=== PATIENT | male | born 1935 | race Caucasian/White ===

== ENCOUNTER 2019-01-24 10:50 | Emergency (ER) | payer BC, MEDICARE ==
[2019-01-24] MEDS ORDERED: Ketorolac INJ* 30 MG/ML 1 ML VIAL IM ONE (11:05)
[2019-01-24] MEDS ORDERED: Cyclobenzaprine TAB* 10 MG PO ONE (11:06)
[2019-01-24] MEDS ORDERED: Lidocaine PATCH 5%* 1 PATCH TRANSDERM ONE (11:08)
--- NOTE | 2019-01-24 11:18 | ED ---
Back Pain - HPI Summary HPI Summary: 83-year-old male presents with back pain for the past week. States been intermittent. He states that today it became constant. pain is located on the side of his lower back. He states is sharp in nature. Took some Tylenol with relief. States worse with movement. Denies any abdominal pain. Pain doesn't radiate anywhere. No urinary symno chest pain or shortness breath. Denies any history of back pain. Has no medical conditions. - History of Current Complaint Chief Complaint: EDBackInjuryPain Stated Complaint: BACK PAIN PER PT Time Seen by Provider: 01/24/19 10:59 Pain Intensity: 2 - Allergies/Home Medications Allergies/Adverse Reactions: Allergies Allergy/AdvReac Type Severity Reaction Status Date / Time cephalexin Allergy Unknown Verified 01/24/19 10:59 Reaction Details Home Medications: Home Medications Acetaminophen [Tylenol Extra Strength] 1 - 2 tab PO Q8H PRN 01/24/19 [History Confirmed 01/24/19] PMH/Surg Hx/FS Hx/Imm Hx Endocrine/Hematology History: Denies: Hx Anticoagulant Therapy Cardiovascular History: Reports: Hx Hypertension Respiratory History: Denies: Hx Asthma Infectious Disease History: No Infectious Disease History: Denies: Traveled Outside the [place] in Last 30 Days - Family History Known Family History: Positive: Non-Contributory - Social History Alcohol Use: Rare Substance Use Type: Reports: None Smoking Status (MU): Never Smoked Tobacco Review of Systems Negative: Fever Negative: Chest Pain Negative: Shortness Of Breath Positive: Myalgia - back pain All Other Systems Reviewed And Are Negative: Yes Physical Exam Triage Information Reviewed: Yes Vital Signs On Initial Exam: Initial Vitals Temp Pulse Resp BP Pulse Ox 97.9 F 65 16 137/86 95 01/24/19 10:53 01/24/19 10:53 01/24/19 10:53 01/24/19 10:53 01/24/19 10:53 Vital Signs Reviewed: Yes Appearance: Positive: Well-Appearing Skin: Positive: Warm, Dry Head/Face: Positive: Normal Head/Face Inspection Eyes: Positive: Normal, Conjunctiva Clear ENT: Positive: Pharynx normal Respiratory/Lung Sounds: Positive: Clear to Auscultation, Breath Sounds Present Cardiovascular: Positive: Normal, RRR Abdomen Description: Positive: Nontender, Soft Bowel Sounds: Positive: Present Musculoskeletal: Positive: Limited @ - back, Other - tenderness over left side of lower back, good pulses, sensation grossly intact Neurological: Positive: Normal, Normal Gait Psychiatric: Positive: Normal Procedures - Sedation Patient Received Moderate/Deep Sedation with Procedure: No Diagnostics - Vital Signs Vital Signs Temp Pulse Resp BP Pulse Ox 01/24/19 10:53 97.9 F 65 16 137/86 95 - Laboratory Lab Statement: Any lab studies that have been ordered have been reviewed, and results considered in the medical decision making process. 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 Re-Evaluation - Re-Evaluation First Eval Re-Evaluation Time: 12:40 Change: Improved Comment: feeling better Back Pain Course/Dx - Course Course Of Treatment: 83-year-old male presents with back pain for the past week. States been intermittent. He states that today it became constant. pain is located on the side of his lower back. He states is sharp in nature. Took some Tylenol with relief. States worse with movement. Denies any abdominal pain. Pain doesn't radiate anywhere. No urinary symno chest pain or shortness breath. Denies any history of back pain. Has no medical conditions. On exam tenderness over SI joint on left side. Neurovascularly intact. X- ray shows osteoarthritis. feeling better after toradol, lidoderm and flexeril. will discharge with lidoderm, flexeril, and medrol. patient understand and agrees with plan. - Diagnoses Differential Diagnosis/HQI/PQRI: Positive: Fracture, Strain, Sprain Provider Diagnoses: Back pain Discharge ED - Sign-Out/Discharge Documenting (check all that apply): Patient Departure - Discharge Plan Condition: Good Disposition: HOME Prescriptions: Cyclobenzaprine TAB* [Flexeril 10 MG TAB*] 10 mg PO BID PRN #10 tab PRN Reason: Pain - Moderate Lidocaine PATCH 5%* [Lidoderm 5% Patch*] 1 patch TRANSDERM DAILY #5 patch methylPREDNISolone [Medrol Dosepak 4 MG*] 4 mg PO .SEE EDUARDO INSTRUCTION #1 packet Patient Education Materials: Back Pain (ED) Referrals: No Primary Care Phys,NOPCP [Primary Care Provider] - Additional Instructions: Follow directions on package for Medrol pack Take muscle relaxers twice a day as needed for pain Apply lidocaine patches to area for up to 12 hours in one 24 hour period Use Tylenol for pain every 6 hours ice/heat area, move as much as possible Follow up with primary within 5 days Return to ED if develop any new or worsening symptoms - Billing Disposition and Condition Condition: GOOD Disposition: Home
[2019-01-24 12:57] VITALS: BP 129/68
[2019-01-24] MEDS ORDERED: Lidocaine Patch REMOVE* 1 NOTE MISC SCH (21:00)
== END 2019-01-24 12:56 | disposition home or self-care (01) ==
LOC: ED 10:50
DX: M54.9 Dorsalgia, unspecified (principal); I10 Essential (primary) hypertension; Z88.1 Allergy status to other antibiotic agents; M51.36 Other intervertebral disc degeneration, lumbar region
CPT/HCPCS: 72110; 96372; 99282; A9270-GY; J1885